=== PATIENT | male | born 1985 | race Hispanic/Latino ===

== ENCOUNTER 2019-03-27 13:33 | Emergency (ER) | payer OTHER ==
[2019-03-27 14:28] VITALS: BP 109/74
--- NOTE | 2019-03-27 15:21 | XRay Report ---
LEFT KNEE, 3 VIEWS INDICATION: pain/swelling r/t fall. COMPARISON: None. IMPRESSION: No acute osseous or soft tissue abnormality. No significant DJD. Signer Name: Louie Roa Jr, MD Signed: 03/27/2019 3:17 PM Workstation Name: [id number]
--- NOTE | 2019-03-27 16:05 | Emergency Department Report ---
ED Lower Extremity HPI - General Chief Complaint: Extremity Injury, Lower Stated Complaint: LFT KNEE PAIN Time Seen by Provider: 03/27/19 15:15 Source: patient Mode of arrival: Wheelchair Limitations: No Limitations - History of Present Illness Initial Comments: Patient presents to the emergency department a chief complaint of left knee pain. Patient states he slipped while at work and twisted his left knee. Patient is a history of surgery to the left knee greater than 15 years ago. She has no other complaints. MD Complaint: knee injury -: Sudden Injury: Knee: Left Type of Injury: other (twist) Place: work Severity: moderate Severity scale (0 -10): 6 Improves With: rest Worsens With: movement Associated Symptoms: able to partially bear weight. denies: snap/pop sensation, swelling - Related Data Previous Rx's Medication Instructions Recorded Last Taken Type Naproxen [Naprosyn] 500 mg PO BID PRN #20 tablet 03/27/19 Unknown Rx Allergies Allergy/AdvReac Type Severity Reaction Status Date / Time No Known Allergies Allergy Unverified 03/27/19 14:28 ED Review of Systems ROS: Stated complaint: LFT KNEE PAIN Other details as noted in HPI Comment: All other systems reviewed and negative Constitutional: denies: chills, fever Eyes: denies: eye pain, eye discharge, vision change ENT: denies: ear pain, throat pain Respiratory: denies: cough, shortness of breath, wheezing Cardiovascular: denies: chest pain, palpitations Endocrine: no symptoms reported Gastrointestinal: denies: abdominal pain, nausea, diarrhea Genitourinary: denies: urgency, dysuria Musculoskeletal: denies: back pain, joint swelling, arthralgia Skin: denies: rash, lesions Neurological: denies: headache, weakness, paresthesias Psychiatric: denies: anxiety, depression Hematological/Lymphatic: denies: easy bleeding, easy bruising ED Past Medical Hx - Past Medical History Previous Medical History?: No - Surgical History Past Surgical History?: Yes Additional Surgical History: Left knee - Social History Smoking Status: Current Every Day Smoker Substance Use Type: None - Medications Home Medications: Home Medications Medication Instructions Recorded Confirmed Last Taken Type Naproxen [Naprosyn] 500 mg PO BID PRN #20 tablet 03/27/19 Unknown Rx ED Physical Exam - General Limitations: No Limitations General appearance: alert, in no apparent distress - Head Head exam: Present: atraumatic, normocephalic - Eye Eye exam: Present: normal appearance - ENT ENT exam: Present: mucous membranes moist - Neck Neck exam: Present: normal inspection - Respiratory Respiratory exam: Present: normal lung sounds bilaterally. Absent: respiratory distress - Cardiovascular Cardiovascular Exam: Present: regular rate, normal rhythm. Absent: systolic murmur, diastolic murmur, rubs, gallop - Rectal Rectal exam: Present: deferred - Extremities Exam Extremities exam: Present: normal inspection, other (left knee appears to be stable; tender palpation in the lateral aspect of the left knee) - Back Exam Back exam: Present: normal inspection - Neurological Exam Neurological exam: Present: alert, oriented X3 - Psychiatric Psychiatric exam: Present: normal affect, normal mood - Skin Skin exam: Present: warm, dry, intact, normal color. Absent: rash ED Course Vital Signs 03/27/19 14:25 Temperature 98.2 F Pulse Rate 62 Respiratory 18 Rate Blood Pressure 109/74 O2 Sat by Pulse 100 Oximetry ED Lower Extremity MDM - Radiology Data Radiology results: report reviewed - Medical Decision Making Results discussed with patient Critical care attestation.: If time is entered above; I have spent that time in minutes in the direct care of this critically ill patient, excluding procedure time. ED Disposition Clinical Impression: Left knee injury Disposition: DC-01 TO HOME OR SELFCARE Is pt being admited?: No Does the pt Need Aspirin: No Condition: Stable Instructions: Knee Sprain (ED) Additional Instructions: return if worse Referrals: GUS HUNTLEY MD [Staff Physician] - 3-5 Days Time of Disposition: 16:04
[2019-03-27] MEDS ORDERED: NAPROXEN 500 MG TAB PO ONE (16:58)
== END 2019-03-27 16:55 | disposition home or self-care (01) ==
LOC: ED 13:33
DX: S89.92XA Unspecified injury of left lower leg, initial encounter (principal); F17.200 Nicotine dependence, unspecified, uncomplicated; Z98.890 Other specified postprocedural states; Z79.899 Other long term (current) drug therapy; W01.0XXA Fall on same level from slipping, tripping and stumbling without subsequent striking against object, initial encounter; Y93.89 Activity, other specified; Y92.89 Other specified places as the place of occurrence of the external cause; Y99.8 Other external cause status